=== PATIENT | female | born 1935 | race Caucasian/White ===

== ENCOUNTER 2024-04-18 21:14 | Inpatient (IN) | payer MEDICARE, OTHER ==
[~2024-04-18] VITALS: Ht 152.4 cm; Wt 65.5 kg
[2024-04-18 21:35] VITALS: BP 138/51; TEMP 98; O2SAT 93
[2024-04-19] MEDS ORDERED: SENNOSIDES/DOCUSATE SODIUM TABLET PO PRN (02:00)
[2024-04-19] MEDS ORDERED: SIMETHICONE 80 MG TAB.CHEW PO PRN (02:00)
[2024-04-19] MEDS ORDERED: ACETAMINOPHEN 500 MG TABLET PO PRN (02:00)
[2024-04-19] MEDS ORDERED: OXYCODONE/APAP 5-325 MG TABLET PO PRN (02:00)
[2024-04-19 06:00] VITALS: BP 122/55; TEMP 98.2; O2SAT 94
[2024-04-19] MEDS: PANTOPRAZOLE SODIUM 40 MG TABLET.DR PO SCH (06:27)
[2024-04-19] MEDS: ACETAMINOPHEN 325 MG TABLET PO PRN (08:16)
[2024-04-19] MEDS: APIXABAN 2.5 MG TABLET PO SCH (08:17)
[2024-04-19] MEDS ORDERED: APIX2.5T PO (12:38)
[2024-04-19] MEDS ORDERED: CETI-90 PO (12:38)
[2024-04-19] MEDS ORDERED: MONT10TA33 PO (12:38)
[2024-04-19] MEDS: OXYCODONE/APAP 5-325 MG TABLET PO PRN (14:08)
[2024-04-19] MEDS ORDERED: ALBUTEROL SULFATE 2.5 MG/3 ML NEBU NEB PRN (15:30)
[2024-04-19 16:14] VITALS: BP 130/54; TEMP 98.1; O2SAT 96
[2024-04-19] MEDS: MONTELUKAST SODIUM 10 MG TABLET PO SCH (20:39)
[2024-04-19] MEDS ORDERED: TRAMADOL HCL 50 MG TABLET PO SCH ×2 (22:00)
[2024-04-19 23:16] VITALS: BP 140/56; TEMP 97.7; O2SAT 91
[2024-04-20 07:14] VITALS: BP 139/48; TEMP 98.1; O2SAT 92
[2024-04-20 07:34] LABS: BASOPHILS % (AUTO) 0.5 % (0.0-2.0); DIFFERENTIAL COMMENT 1; EOSINOPHILS # (AUTO) 0.3 K/uL (0.0-0.7); EOSINOPHILS % (AUTO) 4.6 % (0.0-7.0); HEMOGLOBIN 11.8 g/dL (10.9-14.3); LYMPHOCYTES # (AUTO) 1.5 K/uL (0.8-4.8); LYMPHOCYTES % (AUTO) 24.2 % (20.5-51.5); MEAN CORPUSCULAR HEMOGLOBIN 29.2 uug (24.7-32.8); MEAN CORPUSCULAR HGB CONC 34 g/dL (32.3-35.6); MEAN CORPUSCULAR VOLUME 86.3 fL (75.5-95.3); MONOCYTES # (AUTO) 0.6 K/uL (0.1-1.30); MONOCYTES % (AUTO) 9.2 % (0.0-11.0); NEUTROPHILS # (AUTO) 3.8 K/uL (1.8-8.9); NEUTROPHILS % (AUTO) 61.5 % (38.5-71.5); PLATELET COUNT (AUTO) 259 K/uL (179-408); RED BLOOD CELL COUNT(AUTO) 4.06 MIL/uL (3.63-4.92); RED CELL DISTRIBUTION WIDTH 13.9 % (12.3-17.7); WHITE BLOOD COUNT (AUTO) 6.2 K/uL (3.8-11.8)
[2024-04-20 08:10] LABS: CALCIUM 8.8 mg/dL (8.5-10.1); CARBON DIOXIDE 33 mmol/L (21-32); CHLORIDE 103 mmol/L (98-107); CREATININE 0.8 mg/dL (0.6-1.3); GLUCOSE 121 mg/dL (74-106); POTASSIUM 4.4 mmol/L (3.5-5.1); SODIUM SERUM 139 mmol/L (136-145); UREA NITROGEN, BLOOD 26 mg/dL (7-18)
[2024-04-20 08:11] LABS: MAGNESIUM 2.3 mg/dL (1.8-2.4); PHOSPHOROUS 3.5 mg/dL (2.5-4.9)
[2024-04-20 09:07] LABS: THYROID STIMULATING HORMONE 1.431 mIU/mL (0.358-3.740)
[2024-04-20] MEDS: ACETAMINOPHEN/CODEINE 300-30 MG TABLET PO PRN (09:12)
[2024-04-20 16:08] VITALS: BP 124/46; TEMP 98.1; O2SAT 96
[2024-04-20] MEDS: OXYCODONE/APAP 5-325 MG TABLET PO PRN (17:15)
[2024-04-20 21:06] VITALS: BP 125/44; TEMP 98.3; O2SAT 94
[2024-04-21 06:56] VITALS: BP 141/57; TEMP 98.1; O2SAT 94
[2024-04-21] MEDS: ACETAMINOPHEN 325 MG TABLET PO PRN (13:25)
[2024-04-21 15:40] VITALS: BP 130/64; TEMP 98.4; O2SAT 92
[2024-04-21] MEDS: OXYCODONE/APAP 5-325 MG TABLET PO SCH (20:00)
[2024-04-21 21:08] VITALS: BP 143/42; TEMP 97.8; O2SAT 90
[2024-04-22 05:58] VITALS: BP 123/52; TEMP 98.1; O2SAT 97
[2024-04-22] MEDS ORDERED: SENNOSIDES/DOCUSATE SODIUM TABLET PO PRN (07:45)
[2024-04-22] MEDS: SENNOSIDES/DOCUSATE SODIUM TABLET PO SCH (08:13)
[2024-04-22] MEDS: REMEDY ESSENTIAL ZINC PASTE 113 GM TOP PRN (08:13)
[2024-04-22 15:29] VITALS: BP 126/56; TEMP 98.2; O2SAT 96
[2024-04-22 15:31] VITALS: BP 147/63; TEMP 98.2; O2SAT 95
[2024-04-22] MEDS: OXYCODONE/APAP 5-325 MG TABLET PO SCH (17:48)
[2024-04-22 19:33] VITALS: BP 129/50; TEMP 98.2; O2SAT 93
[2024-04-23] MEDS: MAGNESIUM HYDROXIDE 30 ML LIQUID UDC PO PRN (00:13)
[2024-04-23 05:30] VITALS: BP 141/50; TEMP 98.2; O2SAT 96
[2024-04-23 21:28] VITALS: BP 127/42; TEMP 98; O2SAT 96
[2024-04-24 06:00] VITALS: BP 131/47; TEMP 97.7; O2SAT 95
[2024-04-24 16:18] VITALS: BP 116/46; TEMP 97.9; O2SAT 96
[2024-04-24] MEDS: ACETAMINOPHEN 500 MG TABLET PO SCH (18:19)
[2024-04-24 22:00] VITALS: BP 143/55; TEMP 97.6; O2SAT 96
[2024-04-25 06:00] VITALS: BP 126/45; TEMP 97.5; O2SAT 99
[2024-04-25] MEDS: CETIRIZINE HCL 10 MG TABLET PO PRN (15:11)
[2024-04-25 16:10] VITALS: BP 120/48; TEMP 97.8; O2SAT 96
[2024-04-25] MEDS: ACETAMINOPHEN 325 MG TABLET PO SCH (18:00)
[2024-04-25 20:00] VITALS: BP 118/47; TEMP 97.5; O2SAT 93
[2024-04-26 15:49] VITALS: BP 132/42; TEMP 98; O2SAT 96
[2024-04-26 20:33] VITALS: BP 136/49; TEMP 97.9; O2SAT 92
[2024-04-27 06:54] VITALS: BP 123/55; TEMP 97.8; O2SAT 95
[2024-04-27 12:25] VITALS: TEMP 97.8
== END 2024-04-27 15:15 | disposition home health service (06) | DRG 561 ==
PROVIDERS: ADMIT Physical Medicine & Rehabilitation Pain Medicine; ATTEND Physical Medicine & Rehabilitation Pain Medicine
DX: Z47.1 Aftercare following joint replacement surgery (principal); Z96.653 Presence of artificial knee joint, bilateral; Z88.6 Allergy status to analgesic agent; J45.909 Unspecified asthma, uncomplicated; M17.0 Bilateral primary osteoarthritis of knee; R73.03 Prediabetes; R79.89 Other specified abnormal findings of blood chemistry; Z88.8 Allergy status to other drugs, medicaments and biological substances; Z91.048 Other nonmedicinal substance allergy status
CPT/HCPCS: 36415; 82652; 83550; 83735; 84100; 84443; 85025; A9150